=== PATIENT | female | born 1975 | race Caucasian/White ===

== ENCOUNTER → 2017-08-20 16:20 | Outpatient (CLI) | payer OTHER, SELFPAY ==
--- NOTE | 2017-08-20 | DI.RAD.S_ITS ---
PROCEDURE: XR CHEST 2V INDICATIONS: chest pain TECHNIQUE: 2 views of the chest were acquired. COMPARISON: [facility], [place], ABD/PELVIS W/CON (PNL), 05/18/2012, 16:25. FINDINGS: Surgical changes and devices: None. Lungs and pleura: No pleural effusions or pneumothorax. Lungs are clear. Mediastinum: Mediastinal contours are normal. Heart size is normal. Bones and chest wall: No suspicious bony abnormalities. Soft tissues appear unremarkable. IMPRESSION: No acute pulmonary process. Dictated by: Irene Hampton M.D. on 08/20/2017 at 17:06 Approved by: Irene Hampton M.D. on 08/20/2017 at 17:06
== END ==
PROVIDERS: PCP Physician Assistant; Visit Provider Physician Assistant
DX: R07.89 Other chest pain (principal)
CPT/HCPCS: 71046

== ENCOUNTER 2017-12-22 17:29 | Emergency (ER) | payer OTHER, SELFPAY ==
--- NOTE | 2017-12-22 17:37 | ED_ITS ---
HPI - Extremity Injury (Lower) General Chief Complaint: Extremity Injury, Lower Stated Complaint: left knee injury Time Seen by Provider: 12/22/17 17:36 Source: patient Mode of arrival: ambulatory Limitations: no limitations History of Present Illness HPI Narrative: Otherwise healthy 42-year-old female here for evaluation of left knee injury. Patient states that this afternoon she was roller skating with her daughter where she fell and landed directly on her knee. Has been able to ambulate since then but has had pain. Does have an abrasion over the front portion of her knee. Has tried ice the knee before coming to the emergency department otherwise no other interventions. Related Data Allergies Allergy/AdvReac Type Severity Reaction Status Date / Time penicillin G Allergy Verified 12/22/17 17:44 Review of Systems Constitutional Denies fever(s) Musculoskeletal Denies myalgias, Reports deformity, Reports arthralgias (Left knee), Reports joint swelling (Left knee), Reports limited range of motion (Left knee) and Denies tingling Integumentary/Breasts Comments: Abrasion over the front of the knee Neurologic Denies tingling and Denies paresthesias [facility] Medical History Healthy adult (Acute) Surgical History No pertinent past surgical history (Acute) Social History Smoking Status: Former smoker Exam Initial Vital Signs Initial Vital Signs: Vital Signs Temperature 98.7 F 12/22/17 17:38 Pulse Rate 71 12/22/17 17:38 Respiratory Rate 18 12/22/17 17:38 Blood Pressure 175/107 H 12/22/17 17:38 Pulse Oximetry 99 12/22/17 17:38 Const General: cooperative, healthy appearing, comfortable, well developed, well groomed and No acute distress Orientation: alert, awake and oriented x3 HENMT Head: normal to inspection and normocephalic Resp Effort & Inspection: normal respiratory effort Cardio Pulses: dorsalis pedis present on the left Skin Trauma: abrasion (2 cm abrasion over the anterior portion of the knee) Neuro Other: Sensation intact to light touch left lower extremity Extrem Other: Patient with a fusion ecchymosis around the left knee with abrasion over the anterior portion the knee. Patient is able to do a straight leg raise without any problems. Is tender throughout the left knee to palpation. Course Orders Ordered: ED Orders 12/22/17 17:39 XR knee LT 3V Stat Vital Signs - 8 hr 12/22/17 17:38 Temperature 98.7 F Pulse Rate 71 Respiratory Rate 18 Blood Pressure 175/107 H Pulse Oximetry 99 MDM - Extremity Injury (Lower) Imaging Data X-ray knee: Attestation: I personally reviewed and interpreted this imaging study as follows: My impression: No fracture, no dislocation, no acute pathology MDM Narrative Medical decision making narrative: Patient is neurovascularly intact. No fractures noted on the x-ray. Patient is able to do a straight leg raise. I have low suspicion for quadriceps or patellar tendon rupture. Unable to evaluate other major ligaments secondary to the swelling in the pain. We did give the patient crutches here in the emergency department. We did discuss that she can walk on her leg as she tolerates. She expressed understanding and agreement with plan. Discharge Plan Departure Patient Disposition: Home Clinical Impression: Effusion of left knee, Abrasion of knee, left Instructions: How To Perform RICE (Rest, Ice, Compress, Elevate), DI for Knee Pain Activity Restrictions/Additional Instructions: You can use the crutches as needed. You can place weight on your leg. Keep the abrasion clean with soap and water. Call your primary care doctor for follow-up. Return to the emergency department for any new or worsening symptoms
[2017-12-22 17:38] VITALS: BP 175/107; PULSE 71; RESP 18; TEMP 37.1; O2SAT 99
--- NOTE | 2017-12-22 17:39 | DI.RAD.S_ITS ---
PROCEDURE: XR KNEE LT 3V INDICATIONS: Fall pain and swelling TECHNIQUE: 3 views of the knee were acquired. COMPARISON: None. FINDINGS: Bones: No fractures or dislocations. No suspicious bony lesions. Soft tissues: No joint effusion. No suspicious soft tissue calcifications. IMPRESSION: No acute fracture or dislocation of the left knee. Consider followup knee radiographs in 7-10 days if there is continued clinical concern. Dictated by: Larry Walker M.D. on 12/22/2017 at 18:40 Approved by: Larry Walker M.D. on 12/22/2017 at 18:42
== END 2017-12-22 18:31 | disposition home or self-care (01) ==
PROVIDERS: Emergency Provider Emergency Medicine; PCP Physician Assistant
DX: S80.212A Abrasion, left knee, initial encounter (principal); M25.462 Effusion, left knee; Y93.51 Activity, roller skating (inline) and skateboarding
CPT/HCPCS: 73562; 99282; 99283